=== PATIENT | male | born 1970 | race Hispanic/Latino ===

== ENCOUNTER 2019-01-14 20:18 | Emergency (ER) | payer BC ==
[~2019-01-14 20:18] MED LIST: LISI-617 PO; ROSU20TA PO
[2019-01-14] MEDS ORDERED: ACETAMINOPHEN 325 MG TAB ONE (21:02)
[2019-01-14 21:23] LABS: RAPID GROUP A STREP NEGATIVE (NEGATIVE)
== END 2019-01-14 22:22 | disposition home or self-care (01) ==
LOC: EDH 20:18
DX: J10.1 Influenza due to other identified influenza virus with other respiratory manifestations (principal); R50.81 Fever presenting with conditions classified elsewhere
CPT/HCPCS: 87804; 87880

== ENCOUNTER → 2019-08-28 | Outpatient (CLI) | payer BC ==
[~2019-08-28] MED LIST changes: -ROSU20TA PO; +ROSU20TA23 PO
== END | disposition home or self-care (01) ==
LOC: RAH 07:24
PROVIDERS: ATTEND Family Medicine
DX: K76.0 Fatty (change of) liver, not elsewhere classified (principal)
CPT/HCPCS: 76700

== ENCOUNTER → 2024-03-21 | Outpatient (CLI) | payer OTHER ==
[~2024-03-21] MED LIST changes: -LISI-617 PO; +LISI5TAB21 PO
== END | disposition home or self-care (01) ==
LOC: OIH 08:56
PROVIDERS: ATTEND Internal Medicine
DX: Z13.6 Encounter for screening for cardiovascular disorders (principal)
CPT/HCPCS: 75571